=== PATIENT | male | born 1990 | race Caucasian/White ===

== ENCOUNTER 2016-09-23 12:20 | Emergency (ER) | payer BC, OTHER ==
[2016-09-23 13:19] VITALS: BP 142/65
--- NOTE | 2016-09-23 14:29 | UC ---
Headache HPI - HPI Summary HPI Summary: 26 y/o male presents to the urgent care c/o headache since 09/19/2016. Pt states his symptoms started while working a lot w/ the computer. He developed mild sore throat and nasal congestion for 1 day. He has been taking Ibuprofen on and off which has improve the symptoms. However today he developed and episode of vomiting and his FLOR is 6/10 w/o photophobia. Pt states his FLOR started in both temples and then radiated to back of his head. Pt denies fever, dizziness, SOB , chest pain, diarrhea, abdominal pain, neck pain. Pt has not other complains. - History Of Current Complaint Chief Complaint: UCHeadache Stated Complaint: HEAD PAIN Time Seen by Provider: 09/23/16 14:26 Hx Obtained From: Patient Onset/Duration: Gradual Onset, Lasting Days, Still Present Initially Headache Was: Initial Pain Scale(0-10)= - 8/10 Currently Pain Is: Current Pain Scale(0-10)= - 6/10 Pain Intensity: 6 Pain Scale Used: 0-10 Numeric Timing: Constant Character: Typical Headache Location of Headache: Temporal, Occipital Aggravating Factor: Other - ibuprofen Associated Signs And Symptoms: Positive: Nausea, Vomiting. Negative: Dizziness , Fever, Neck Pain, Neck Stiffness, Decreased LOC, Visual Changes - Risk Factors SAH Risk Factors: Negative Meningitis Risk Factors: Negative SDH Risk Factors: Negative Temporal Arteritis Risk Factors: Negative - Allergies/Home Medications Allergies/Adverse Reactions: Allergies Allergy/AdvReac Type Severity Reaction Status Date / Time No Known Allergies Allergy Verified 09/23/16 13:19 PMH/Surg Hx/FS Hx/Imm Hx Other Cardiovascular History: white coat HTN Respiratory History: Asthma Other Neurological History: Meningitis 10 years ago Other History Of: Negative For: HIV, Hepatitis B, Hepatitis C, Anticoagulant Therapy - Surgical History Surgical History: None - Family History Known Family History: Positive: Cardiac Disease, Hypertension, Diabetes - Social History Occupation: Employed Full-time Lives: With Family Alcohol Use: Occasionally Substance Use Type: None Smoking Status (MU): Never Smoked Tobacco Have You Smoked in the Last Year: No Review of Systems Constitutional: Negative Skin: Negative Eyes: Negative ENT: Negative Respiratory: Negative Cardiovascular: Negative Gastrointestinal: Vomiting, Nausea Genitourinary: Negative Motor: Negative Neurovascular: Negative Musculoskeletal: Negative Neurological: Headache Psychological: Negative All Other Systems Reviewed And Are Negative: Yes Physical Exam Triage Information Reviewed: Yes Appearance: Well-Appearing, No Pain Distress, Well-Nourished Vital Signs: Initial Vital Signs Temp 97.6 F 09/23/16 13:14 Pulse 69 09/23/16 13:14 Resp 18 09/23/16 13:14 BP 142/65 09/23/16 13:14 Pulse Ox 100 09/23/16 13:14 Vital Signs Reviewed: Yes Eye Exam: Normal Eyes: Positive: Conjunctiva Clear - PERRLS, EOMI, fundi grossly normal ENT Exam: Normal ENT: Positive: Normal ENT inspection, Hearing grossly normal, Pharynx normal, TMs normal Dental Exam: Normal Neck exam: Normal Neck: Positive: Supple, Nontender, No Lymphadenopathy Respiratory Exam: Normal Respiratory: Positive: Chest non-tender, Lungs clear, Normal breath sounds Cardiovascular Exam: Normal Cardiovascular: Positive: RRR, No Murmur, Pulses Normal Abdominal Exam: Normal Abdomen Description: Positive: Nontender, No Organomegaly, Soft. Negative: CVA Tenderness (R), CVA Tenderness (L) Bowel Sounds: Positive: Present Musculoskeletal Exam: Normal Musculoskeletal: Positive: Strength Intact, ROM Intact, No Edema Neurological Exam: Normal Psychological Exam: Normal Skin Exam: Normal Headache Course/Dx - Course Course Of Treatment: . 26 y/o male presents to the urgent care c/o headache since 09/19/2016. Pt states his symptoms started while working a lot w/ the computer. He developed mild sore throat and nasal congestion for 1 day. He has been taking Ibuprofen on and off which has improve the symptoms. However today he developed and episode of vomiting and his FLOR is 6/10 w/o photophobia. Pt states his FLOR started in both temples and then radiated to back of his head. Pt denies fever, dizziness, SOB, chest pain, diarrhea, abdominal pain, neck pain. Hx obtained. PE WNL, pt symptomatic w/ N/V and FLOR. PT given Toradol IM inj and Zofran PO to alleviate symptoms. Pt tolerated well medications and felt better. Pt D/C home with Rx Naproxen PO ans Zofran PO to alleviate symptoms. Advised to go to Opthalmologist for change in eye glases since he straining his eyes at work. Pt understood and agreed. Pt BP elevated. Pt with HX of [place]at HTN. - Differential Dx/Diagnosis Differential Diagnosis/HQI/PQRI: Migraine, Sinus Headache, Tension Headache, Viral Syndrome Provider Diagnoses: 1- Acute Headache. 2-Nausea and vomiting Discharge - Discharge Plan Condition: Stable Disposition: HOME Prescriptions: Naproxen TAB* [Naprosyn 250 mg TAB*] 500 mg PO Q8H PRN #21 tab PRN Reason: Headache Ondansetron TAB* [Zofran 4 MG Tab*] 4 mg PO Q6H PRN #12 tab PRN Reason: Vomiting Patient Education Materials: Acute Headache (ED) Referrals: Kendall Ramirez MD [Primary Care Provider] - If Needed Additional Instructions: Please take Naproxen PO as instructed after meals to alleviate Headache and Zofran PO to alleviate nausea and vomiting. If symptoms do not improve or worsen please return to the urgent care or f/u with your PCP for further evaluation and treatment. Please f/u with your cardiac nurse for further evaluation on your eye glasses.
[2016-09-23] MEDS ORDERED: Ketorolac INJ* 60 MG/2 ML VIAL IM ONE (14:39)
[2016-09-23] MEDS ORDERED: Ondansetron TAB* 4 MG PO ONE (14:41)
[2016-09-23] MEDS ORDERED: Ondansetron ODT TAB* 4 MG ONE (14:49)
[2016-09-23] MEDS ORDERED: Ondansetron ODT TAB* 4 MG PO ONE (14:57)
== END 2016-09-23 15:00 | disposition home or self-care (01) ==
LOC: UCEAST 12:20
DX: R51 Headache (principal); R11.2 Nausea with vomiting, unspecified; J45.909 Unspecified asthma, uncomplicated; R03.0 Elevated blood-pressure reading, without diagnosis of hypertension
CPT/HCPCS: 96372; 99212; A9270-GY; G0463; J1885

== ENCOUNTER 2016-10-22 09:52 | Emergency (ER) | payer BC ==
[2016-10-22 12:09] VITALS: BP 132/70
--- NOTE | 2016-10-22 12:11 | UC ---
Viv Nichols Thomas, [facility] on 10/22/16 at 1132 . Abdominal Pain Male HPI - HPI Summary HPI Summary: The pt is a 26 y/o M presenting to E c/o N/V/D that began 4 days ago. He describes his stool as dark in color. The pt rates the pain 4/10 and describes his pain as cramping. He also notes a gassy, bubbling feeling with occasional sharp pains. He ate cereal today, which he was unable to keep down. He notes chronic stomach complaints for the last year, and it is not unusual for him to have concurrent diarrhea and vomiting. His prior gastrointestinal complaints were evaluated by Dr. Ramirez previously. He does not have a previous diagnosis of irritable bowel syndrome although this was discussed as a possible diagnosis if his gastrointestinal complaints were to continue. His symptoms are sometimes aggravated by drinking water. The symptoms are alleviated by nothing. Pt additionally c/o recent weight loss (8-10 pounds in the last month) and fatigue. Pt denies jon blood in his vomit or stool, fever, dysuria, hematuria. He reports that he ate suspect Setswana food the day before his symptoms began. PMHx: meningitis, shingles. PSHx: none. SHx: no smoking, occasional and moderate alcohol use, no illicit drug use. FHx: negative for GI disease. Note: VS Stable. BP 138/98. Pulse Ox 100. 4/10 discomfort. Occasional alcohol, nonsmoker. Hx Meningitis and shingles. Visit history includes diarrhea. Patient is on no medications. Nurses Note: has had stomach issues for over a year. starting 4 days ago he has had N/V/D. he says he feels "super phlegmy". in the past he has taken a nausea pill as needed which has helped. he is here to get checked out. he denies jon blood in the vomit or stool. he does say that the stool is dark in color. he has seen Dr Ramirez and recommended to monitor his diet. he has not seen GI specialist. he did try to contact Dr Ramirez today but could not get an appt. He states he has lost 8-10 lbs in the past month. - History of Current Complaint Chief Complaint: UCAbdominalPain Stated Complaint: ABDOMINAL COMPLAINT Time Seen by Provider: 10/22/16 11:22 Onset/Duration: Lasting Days - 4, Still Present Timing: Constant Pain Intensity: 4 Pain Scale Used: 0-10 Numeric Character: Aching, Other - Gassy, bubbling, occasionally sharp Aggravating Factor(s):: Food - sometiems drinking water Alleviating Factor(s): Nothing Associated Signs And Symptoms: Positive: Nausea, Vomiting, Diarrhea. Negative: Fever, Back Pain, Constipation, Urinary Symptoms - Allergies/Home Medications Allergies/Adverse Reactions: Allergies Allergy/AdvReac Type Severity Reaction Status Date / Time No Known Allergies Allergy Verified 10/22/16 10:36 Home Medications: Home Medications Multivitamins/Minerals TAB* [Thera M Plus TAB*] 1 tab PO DAILY 10/22/16 [ History Confirmed 10/22/16] PMH/Surg Hx/FS Hx/Imm Hx Previously Healthy: No - Meningitis, Shingles Respiratory History: Other Other Respiratory History: NEG: COPD Other History Of: Negative For: HIV, Hepatitis B, Hepatitis C, Anticoagulant Therapy - Surgical History Surgical History: None - Family History Known Family History: Positive: Cardiac Disease, Hypertension, Diabetes, Other - NEG: GI disease - Social History Alcohol Use: Occasionally Substance Use Type: None Smoking Status (MU): Never Smoked Tobacco Have You Smoked in the Last Year: No Review of Systems Constitutional: Other - POS: recent weight loss (8-10 pounds in last month). Skin: Negative Eyes: Negative ENT: Negative Respiratory: Negative Cardiovascular: Negative Gastrointestinal: Vomiting, Diarrhea, Nausea, Other - NEG: jon blood in vomit or stool Genitourinary: Negative Motor: Negative Neurovascular: Negative Musculoskeletal: Negative Neurological: Other - POS: fatigue Psychological: Negative All Other Systems Reviewed And Are Negative: Yes Physical Exam Triage Information Reviewed: Yes Vital Signs: Initial Vital Signs Temp 98.9 F 10/22/16 10:31 Pulse 73 10/22/16 10:31 Resp 16 10/22/16 10:31 BP 138/93 10/22/16 10:31 Pulse Ox 100 10/22/16 10:31 Vital Signs Reviewed: Yes - Additional Comments Appearance: The patient is well-appearing, is in no pain distress, and is well- nourished. Eyes: Conjunctiva are clear. ENT: The hearing is grossly normal, the pharynx is normal, and the TMs are normal. There is no muffled or hoarse voice. Neck: The neck is supple and nontender. Respiratory: The chest is nontender. The lungs are clear, there are normal breath sounds, and there is no respiratory distress. Cardiovascular: Heart is regular rate and rhythm. There is no murmur. Abdomen: NO PERITONEAL SIGNS. The abdomen is soft and nontender. There is no organomegaly. Bowel sounds: HYPERACTIVE BOWEL SOUNDS, TYMPANITIC. Musculoskeletal: Strength is intact. The patient moves all extremities. Neurological: The patient is alert. Psychological: The patient displays age appropriate behavior Skin: Negative for rashes. Abd Pain Male Course/Dx - Course Course Of Treatment: The patient presents with N/V/D that began 5 days ago. He also notes chronic gastrointestinal complaints for the last year. Medications have been included in the original chart and reviewed. Pre-Hypertensive BP reading. The patient is diagnosed with abdominal discomfort with N/V/D: unclear etiology, gastroenteritis vs. irritable bowel syndrome. - Differential Dx/Clinical Impression Differential Diagnosis/HQI/PQRI: Other - Gastroenteritis, irritable bowel syndrome Provider Diagnoses: Abdominal discomfort with N/V/D: unclear etiology, gastroenteritis vs. irritable bowel syndrome. Discharge - Discharge Plan Condition: Stable Disposition: HOME Patient Education Materials: Irritable Bowel Syndrome (ED), Nutrition Tips for Relief of Diarrhea (ED) Forms: *Work Release Referrals: Kendall Ramirez MD [Primary Care Provider] - Additional Instructions: Thank you for helping us improve patient care by filling out the My Point Survey. Your blood pressure reading today was 138/93, indicating PREHYPERTENSION. Follow -up with your primary care provider within 4 weeks for blood pressure readings and further evaluation. WE DISCUSSED: You may have a bowel virus infection or irritable bowel syndrome. See diet recommendations I have given you. Re check for increased pain, temperature, blood in stool. See your doctor for follow up and further evaluation and treatment as needed. The documentation as recorded by the Viv cervantes Thomas accurately reflects the service I personally performed and the decisions made by me, Grover Pinon MD.
== END 2016-10-22 12:10 | disposition home or self-care (01) ==
LOC: UCEAST 09:52
DX: R10.9 Unspecified abdominal pain (principal); R11.2 Nausea with vomiting, unspecified; R19.7 Diarrhea, unspecified; R63.4 Abnormal weight loss
CPT/HCPCS: 99212; G0463

== ENCOUNTER 2016-11-11 14:43 | Emergency (ER) | payer BC ==
[2016-11-11 14:51] VITALS: BP 140/83
--- NOTE | 2016-11-11 16:03 | UC ---
Dizzy HPI HPI Summary: 26 yo male awoke today with fatigue/mild runny nose/mild aches/and burning eyes worse symptom is fatigue and dizziness - History Of Current Complaint Chief Complaint: UCGeneralIllness Stated Complaint: LIGHT-HEADED,ACHES,FATIGUE Time Seen by Provider: 11/11/16 15:48 Hx Obtained From: Patient Onset/Duration: Gradual Onset, Lasting Hours Timing: Constant Severity Initially: Mild Severity Currently: Mild Pain Intensity: 2 Pain Scale Used: 0-10 Numeric Character: Weak, Dizzy Aggravating Factor(s): Nothing Alleviating Factor(s): Nothing Associated Signs And Symptoms: Negative: Nausea, Vomiting, Diaphoresis, Tinnitus , Chest Pain, SOB, Palpitations, Unsteady Gait, Visual Changes, Decreased Oral Intake, Change In Medication, Change In Diet, OTC Medications - Risk Factors Cardiac Risk Factors: Negative CVA Risk Factor: Negative - Allergies/Home Medications Allergies/Adverse Reactions: Allergies Allergy/AdvReac Type Severity Reaction Status Date / Time No Known Allergies Allergy Verified 11/11/16 14:51 PMH/Surg Hx/FS Hx/Imm Hx Previously Healthy: Yes - asceptic meningitis age 15, mono, shingles Other History Of: Negative For: HIV, Hepatitis B, Hepatitis C, Anticoagulant Therapy - Surgical History Surgical History: None - Family History Known Family History: Positive: Cardiac Disease, Hypertension, Diabetes, Other - NEG: GI disease - Social History Alcohol Use: Occasionally Substance Use Type: None Smoking Status (MU): Never Smoked Tobacco Have You Smoked in the Last Year: No Review of Systems Constitutional: Fatigue Skin: Negative Eyes: Other - burning eyes with "hot tears" ENT: Nasal Discharge Respiratory: Negative Cardiovascular: Negative Gastrointestinal: Negative Genitourinary: Negative Motor: Negative Neurovascular: Negative Musculoskeletal: Myalgia Neurological: Negative Psychological: Negative Is Patient Immunocompromised?: No All Other Systems Reviewed And Are Negative: Yes Physical Exam Triage Information Reviewed: Yes Appearance: Well-Appearing, No Pain Distress, Well-Nourished Vital Signs: Initial Vital Signs Temp 98.8 F 11/11/16 14:47 Pulse 74 11/11/16 14:47 Resp 18 11/11/16 14:47 BP 140/83 11/11/16 14:47 Pulse Ox 99 11/11/16 14:47 Eye Exam: Normal Eyes: Positive: Conjunctiva Clear. Negative: Conjunctiva Inflamed, Discharge ENT: Positive: Hearing grossly normal, Pharynx normal, Nasal drainage, TMs normal. Negative: Nasal congestion, Tonsillar swelling, Tonsillar exudate, Trismus, Muffled/hoarse voice Neck: Positive: Supple, Nontender, No Lymphadenopathy Respiratory: Positive: Lungs clear, Normal breath sounds, No respiratory distress, No accessory muscle use Cardiovascular: Positive: RRR, No Murmur, Pulses Normal Musculoskeletal: Positive: ROM Intact, No Edema Neurological: Positive: Alert Psychological Exam: Normal Skin Exam: Normal Dizzy Course/Dx - Differential Dx/Diagnosis Provider Diagnoses: viral syndrome. ? allergic conjunctivits Discharge - Discharge Plan Condition: Stable Disposition: HOME Patient Education Materials: Viral Syndrome (ED) Forms: *Work Release Referrals: Kendall Ramirez MD [Primary Care Provider] - 4 Days (if not better) Additional Instructions: rest fluids ZADITOR EYE DROPS (OTC) YOU MAY HAVE ALLERGIC CONJUNCTIVITIS bp a little on the high side today and should be rechecked when you next see your provider
== END 2016-11-11 16:00 | disposition home or self-care (01) ==
LOC: UCEAST 14:43
DX: B34.9 Viral infection, unspecified (principal)
CPT/HCPCS: 99211; G0463

== ENCOUNTER 2016-11-13 12:47 | Emergency (ER) | payer BC ==
[2016-11-13 15:10] LABS: Hematocrit 50 % (42-52); Hemoglobin 16.9 g/dl (14.0-18.0); Mean Corpuscular HGB Conc 34 g/dl (31-36); Mean Corpuscular Hemoglobin 29 pg (27-31); Mean Corpuscular Volume 85 fL (80-94); Mean Platelet Volume 9 um3 (7.4-10.4); Red Blood Count 5.85 10^6/ul (4.0-5.4); Red Cell Distribution Width 13 % (10.5-15); White Blood Count 9.8 10^3/ul (3.5-10.8)
[2016-11-13 16:14] LABS: BUN/Creatinine Ratio 12.7 (8-20); C Reactive Protein 2.03 mg/L (< 5.00); Calcium 9.8 mg/dL (8.6-10.3); EGFR African American 105.8 (>60); EGFR Non-African American 82.2 (>60); Globulin 2.7 g/dL (2-4); Potassium 3.8 mmol/L (3.5-5.0); Total Protein 7.7 g/dL (6.4-8.9)
[2016-11-13 16:38] LABS: Urine Bilirubin Negative (Negative); Urine Glucose Negative (Negative); Urine Nitrite Negative (Negative)
[2016-11-13 17:12] VITALS: BP 135/71
--- NOTE | 2016-11-15 11:49 | ED ---
Jaime Nichols Benjamin, scribed for David Hay MD on 11/13/16 at 1506 . Abdominal Pain/Male - HPI Summary HPI Summary: 26yo male c/o diffuse abdominal pain for 2 days. Pt has been having ongoing GI problem for a year now and is being worked up with a GI doctor for possible IBS. Pt has been having abdominal pain on and off for a year now. Pt reports that in the past 2 days, his abdominal pain has gotten worse, and reports fatigue, lightheadedness, dizziness, body aches, shaking, and diarrhea. Pt has a appointment with his GI doctor next Friday. - History of Current Complaint Chief Complaint: EDGeneral Stated Complaint: ABD PAIN, LIGHT HEADED Time Seen by Provider: 11/13/16 14:43 Hx Obtained From: Patient, Family/Rides Supervisor Onset/Duration: Gradual Onset, Lasting Days - 2 days, Still Present Timing: Constant Severity Initially: Mild Severity Currently: Mild Pain Intensity: 0 Pain Scale Used: 0-10 Numeric Location: Diffuse Radiates: No Aggravating Factor(s): Nothing Alleviating Factor(s): Nothing Associated Signs And Symptoms: Positive: Dizzy, Nausea, Diarrhea - Allergies/Home Medications Allergies/Adverse Reactions: Allergies Allergy/AdvReac Type Severity Reaction Status Date / Time No Known Allergies Allergy Verified 11/13/16 14:55 PMH/Surg Hx/FS Hx/Imm Hx Endocrine/Hematology History: Denies: Hx Anticoagulant Therapy, Hx Diabetes, Hx Thyroid Disease Cardiovascular History: Denies: Hx Congestive Heart Failure, Hx Deep Vein Thrombosis, Hx Hypertension , Hx Myocardial Infarction, Hx Pacemaker/ICD Respiratory History: Reports: Hx Asthma - Childhood Denies: Hx Chronic Obstructive Pulmonary Disease (COPD), Hx Lung Cancer, Hx Pneumonia, Hx Pulmonary Embolism GI History: Denies: Hx Gall Bladder Disease, Hx Gastrointestinal Bleed, Hx Ulcer, Hx Urosepsis History: Denies: Hx Kidney Stones, Hx Renal Disease Neurological History: Denies: Hx Dementia, Hx Migraine, Hx Seizures, Hx Transient Ischemic Attacks (TIA) Psychiatric History: Denies: Hx Anxiety, Hx Depression, Hx Schizophrenia, Hx Bipolar Disorder Infectious Disease History: No Infectious Disease History: Denies: Hx Clostridium Difficile, Hx Hepatitis, Hx Human Immunodeficiency Virus (HIV), Hx of Known/Suspected MRSA, Hx Shingles, Hx Tuberculosis, Hx Known/ Suspected VRE, Hx Known/Suspected VRSA, History Other Infectious Disease, Traveled Outside the [place] in Last 30 Days - Family History Known Family History: Positive: Cardiac Disease, Hypertension, Diabetes, Other - NEG: GI disease - Social History Lives: With Family Alcohol Use: Occasionally Substance Use Type: Reports: None Smoking Status (MU): Never Smoked Tobacco Have You Smoked in the Last Year: No Review of Systems Positive: Fatigue Eyes: Negative ENT: Negative Cardiovascular: Negative Respiratory: Negative Positive: Abdominal Pain, Diarrhea Genitourinary: Negative Positive: Myalgia Skin: Negative Neurological: Other - dizziness, lightheadedness Psychological: Normal All Other Systems Reviewed And Are Negative: Yes Physical Exam Triage Information Reviewed: Yes Vital Signs On Initial Exam: Initial Vitals Temp Pulse Resp BP Pulse Ox 98.1 F 69 17 146/84 99 11/13/16 12:50 11/13/16 12:50 11/13/16 12:50 11/13/16 12:50 11/13/16 12:50 Vital Signs Reviewed: Yes Appearance: Positive: Well-Appearing, No Pain Distress, Well-Nourished Skin: Positive: Warm, Skin Color Reflects Adequate Perfusion, Dry Head/Face: Positive: Normal Head/Face Inspection Eyes: Positive: EOMI, BETHANY ENT: Positive: Normal ENT inspection, Hearing grossly normal Neck: Positive: Supple, Nontender Respiratory/Lung Sounds: Positive: Clear to Auscultation, Breath Sounds Present Cardiovascular: Positive: RRR, Pulses are Symmetrical in both Upper and Lower Extremities Abdomen Description: Positive: Soft. Negative: Nontender - epigastric and RUQ tenderness Bowel Sounds: Positive: Present Musculoskeletal: Positive: Strength/ROM Intact Neurological: Positive: Sensory/Motor Intact, Alert, Oriented to Person Place, Time Psychiatric: Positive: Affect/Mood Appropriate - [place] Coma Scale Coma Scale Total: 15 Diagnostics - Vital Signs Vital Signs Temp Pulse Resp BP Pulse Ox 11/13/16 14:41 61 100 11/13/16 14:40 140/72 11/13/16 12:50 98.1 F 69 17 146/84 99 - Laboratory Lab Results: Lab Results 11/13/16 11/13/16 11/13/16 Range/Units 15:02 15:02 15:02 WBC 9.8 (3.5-10.8) 10^3/ul RBC 5.85 H (4.0-5.4) 10^6/ul Hgb 16.9 (14.0-18.0) g/dl Hct 50 (42-52) % MCV 85 (80-94) fL MCH 29 (27-31) pg MCHC 34 (31-36) g/dl RDW 13 (10.5-15) % Plt Count 203 (150-450) 10^3/ul MPV 9 (7.4-10.4) um3 Neut % (Auto) 77.0 (38-83) % Lymph % (Auto) 14.4 L (25-47) % [place] % (Auto) 5.8 (1-9) % Eos % (Auto) 2.4 (0-6) % Baso % (Auto) 0.4 (0-2) % Absolute Neuts (auto) 7.6 (1.5-7.7) 10^3/ul Absolute Lymphs (auto) 1.4 (1.0-4.8) 10^3/ul Absolute Monos (auto) 0.6 (0-0.8) 10^3/ul Absolute Eos (auto) 0.2 (0-0.6) 10^3/ul Absolute Basos (auto) 0 (0-0.2) 10^3/ul Absolute Nucleated RBC 0.01 10^3/ul Nucleated RBC % 0.1 Sodium 136 (133-145) mmol/L Potassium 3.8 (3.5-5.0) mmol/L Chloride 101 (101-111) mmol/L Carbon Dioxide 26 (22-32) mmol/L Anion Gap 9 (2-11) mmol/L BUN 14 (6-24) mg/dL Creatinine 1.10 (0.67-1.17) mg/dL Est GFR ( Amer) 105.8 (>60) Est GFR (Non-Af Amer) 82.2 (>60) BUN/Creatinine Ratio 12.7 (8-20) Glucose 86 (70-100) mg/dL Lactic Acid 1.1 (0.5-2.0) mmol/L Calcium 9.8 (8.6-10.3) mg/dL Total Bilirubin 1.00 (0.2-1.0) mg/dL AST 15 (13-39) U/L ALT 16 (7-52) U/L Alkaline Phosphatase 67 (34-104) U/L C-Reactive Protein 2.03 (< 5.00) mg/L Total Protein 7.7 (6.4-8.9) g/dL Albumin 5.0 (3.2-5.2) g/dL Globulin 2.7 (2-4) g/dL Albumin/Globulin Ratio 1.9 (1-3) Lipase 27 (11.0-82.0) U/L Urine Color Urine Appearance Urine pH (5-9) Ur Specific [place] (1.010-1.030) Urine Protein (Negative) Urine Ketones (Negative) Urine Blood (Negative) Urine Nitrate (Negative) Urine Bilirubin (Negative) Urine Urobilinogen (Negative) Ur Leukocyte Esterase (Negative) Urine Glucose (Negative) 11/13/16 Range/Units 16:13 WBC (3.5-10.8) 10^3/ul RBC (4.0-5.4) 10^6/ul Hgb (14.0-18.0) g/dl Hct (42-52) % MCV (80-94) fL MCH (27-31) pg MCHC (31-36) g/dl RDW (10.5-15) % Plt Count (150-450) 10^3/ul MPV (7.4-10.4) um3 Neut % (Auto) (38-83) % Lymph % (Auto) (25-47) % [place] % (Auto) (1-9) % Eos % (Auto) (0-6) % Baso % (Auto) (0-2) % Absolute Neuts (auto) (1.5-7.7) 10^3/ul Absolute Lymphs (auto) (1.0-4.8) 10^3/ul Absolute Monos (auto) (0-0.8) 10^3/ul Absolute Eos (auto) (0-0.6) 10^3/ul Absolute Basos (auto) (0-0.2) 10^3/ul Absolute Nucleated RBC 10^3/ul Nucleated RBC % Sodium (133-145) mmol/L Potassium (3.5-5.0) mmol/L Chloride (101-111) mmol/L Carbon Dioxide (22-32) mmol/L Anion Gap (2-11) mmol/L BUN (6-24) mg/dL Creatinine (0.67-1.17) mg/dL Est GFR ( Amer) (>60) Est GFR (Non-Af Amer) (>60) BUN/Creatinine Ratio (8-20) Glucose (70-100) mg/dL Lactic Acid (0.5-2.0) mmol/L Calcium (8.6-10.3) mg/dL Total Bilirubin (0.2-1.0) mg/dL AST (13-39) U/L ALT (7-52) U/L Alkaline Phosphatase (34-104) U/L C-Reactive Protein (< 5.00) mg/L Total Protein (6.4-8.9) g/dL Albumin (3.2-5.2) g/dL Globulin (2-4) g/dL Albumin/Globulin Ratio (1-3) Lipase (11.0-82.0) U/L Urine Color Yellow Urine Appearance Clear Urine pH 6.0 (5-9) Ur Specific [place] 1.012 (1.010-1.030) Urine Protein Negative (Negative) Urine Ketones Negative (Negative) Urine Blood Negative (Negative) Urine Nitrate Negative (Negative) Urine Bilirubin Negative (Negative) Urine Urobilinogen Negative (Negative) Ur Leukocyte Esterase Negative (Negative) Urine Glucose Negative (Negative) Result Diagrams: 11/13/16 15:02 11/13/16 15:02 Lab Statement: Any lab studies that have been ordered have been reviewed, and results considered in the medical decision making process. Abdominal Pain Fem Course/Dx - Course Course Of Treatment: Mr. Corbin presented with an acute exacerbation of chronic abdominal pain that he has been getting a W/U for and has a GI appointment scheduled next week. He also had some vague systemic symptoms although his W/U was negative. He is encouraged to FU. - Diagnoses Provider Diagnoses: Abdominal pain Discharge - Discharge Plan Condition: Stable Disposition: HOME Patient Education Materials: Abdominal Pain (ED) Referrals: Kendall Ramirez MD [Primary Care Provider] - Additional Instructions: KEEP YOUR APPOINTMENT WITH YOUR GI DOCTOR. The documentation as recorded by the Jaime cervantes Benjamin accurately reflects the service I personally performed and the decisions made by me, David Hay MD.
== END 2016-11-13 17:15 | disposition home or self-care (01) ==
LOC: ED 12:47
DX: R10.9 Unspecified abdominal pain (principal); R42 Dizziness and giddiness; R11.0 Nausea; R19.7 Diarrhea, unspecified
CPT/HCPCS: 36415; 80053; 81003; 83605; 83690; 85025; 86140; 99282

== ENCOUNTER 2016-12-18 12:13 | Emergency (ER) | payer BC ==
[2016-12-18 12:24] VITALS: BP 131/49
[2016-12-18] MEDS ORDERED: Ondansetron ODT TAB* 4 MG PO ONE (12:39)
[2016-12-18] MEDS ORDERED: Ondansetron ODT TAB* 4 MG ONE (12:43)
--- NOTE | 2016-12-18 12:47 | UC ---
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 Negative: LOC (Time In Secs./Mins/Hrs), LOC Duration Unknown, Confusion, Memory Loss, Seizure, Epistaxis, Dental Malocclusion, Vomiting - Allergies/Home Medications Allergies/Adverse Reactions: Allergies Allergy/AdvReac Type Severity Reaction Status Date / Time No Known Allergies Allergy Verified 12/18/16 12:25 PMH/Surg Hx/FS Hx/Imm Hx Previously Healthy: Yes Other History Of: Negative For: HIV, Hepatitis B, Hepatitis C, Anticoagulant Therapy - Surgical History Surgical History: None - Family History Known Family History: Positive: Cardiac Disease, Hypertension, Diabetes, Other - NEG: GI disease - Social History Alcohol Use: Occasionally Substance Use Type: None Smoking Status (MU): Never Smoked Tobacco Have You Smoked in the Last Year: No Review of Systems Constitutional: Negative Skin: Negative Eyes: Photophobia ENT: Negative Respiratory: Negative Cardiovascular: Negative Gastrointestinal: Nausea Genitourinary: Negative Motor: Negative Neurovascular: Negative Musculoskeletal: Negative Neurological: Headache Psychological: Negative Is Patient Immunocompromised?: No All Other Systems Reviewed And Are Negative: Yes Physical Exam Triage Information Reviewed: Yes Appearance: Well-Appearing, No Pain Distress, Well-Nourished Vital Signs: Initial Vital Signs Temp 98.7 F 12/18/16 12:20 Pulse 79 12/18/16 12:20 Resp 15 12/18/16 12:20 BP 131/49 12/18/16 12:20 Pulse Ox 100 12/18/16 12:20 Vital Signs Reviewed: Yes Eyes: Positive: Conjunctiva Clear, Other: - perrl/eomi ENT: Positive: Hearing grossly normal, TMs normal, Uvula midline. Negative: Nasal congestion, Nasal drainage, TM bulging, Sinus tenderness Neck: Positive: Supple, No Lymphadenopathy, Tenderness @ - r/l lateral neck Respiratory: Positive: Lungs clear, Normal breath sounds, No respiratory distress Cardiovascular: Positive: RRR, No Murmur Musculoskeletal: Positive: ROM Intact, No Edema Neurological: Positive: Alert, Muscle Tone Normal, Other: - GCS15/15, (-) rhomberg, normal gait Psychological Exam: Normal Skin Exam: Normal Head Injury Course/Dx - Differential Dx/Diagnosis Provider Diagnoses: concussion without LOC Discharge - Discharge Plan Condition: Stable Disposition: HOME Prescriptions: Ondansetron TAB* [Zofran Tab*] 4 mg PO Q6H PRN #10 tab PRN Reason: Nausea Patient Education Materials: Concussion (ED) Forms: *Work Release Referrals: Kendall Ramirez MD [Primary Care Provider] - 5 Days Additional Instructions: rest ice tylenol or advil recheck in 4-5 days recheck sooner for new or worsening symptoms
== END 2016-12-18 12:50 | disposition home or self-care (01) ==
LOC: UCEAST 12:13
DX: S06.0X0A Concussion without loss of consciousness, initial encounter (principal); W22.8XXA Striking against or struck by other objects, initial encounter; Y92.9 Unspecified place or not applicable
CPT/HCPCS: 99212; A9270-GY; G0463

== ENCOUNTER 2017-02-01 09:41 | Emergency (ER) | payer BC ==
[2017-02-01 10:03] VITALS: BP 144/67
--- NOTE | 2017-02-01 10:06 | UC ---
Hand/Wrist HPI - HPI Summary HPI Summary: Pt presents with right thumb injury 1 week ago. He tells me that he was working working with wood and approx 1cm splinter penetrated his right thumb between the skin fold and radial nail. He was able to remove the splinter immediately and without difficulty. He is here today because the area has become red, tender , and mildly draining white/yellow. He denies fever, chills, numbness, tingling , stiff neck or jaw, headache, SOB, or chest pain. - History Of Current Complaint Chief Complaint: UCSkin Stated Complaint: RIGHT THUMB COMPLAINT Time Seen by Provider: 02/01/17 10:00 Hx Obtained From: Patient Severity Currently: Moderate Pain Intensity: 7 Pain Scale Used: 0-10 Numeric Character Of Pain: Dull, Aching, Throbbing - Allergies/Home Medications Allergies/Adverse Reactions: Allergies Allergy/AdvReac Type Severity Reaction Status Date / Time No Known Allergies Allergy Verified 02/01/17 10:02 Home Medications: Home Medications Loperamide CAP* [Imodium CAP*] 2 mg PO SEE INSTRUCTIONS 02/01/17 [History Confirmed 02/01/17] Ranitidine HCl [Ranitidine Maximum Streng] 150 mg PO DAILY 02/01/17 [History Confirmed 02/01/17] PMH/Surg Hx/FS Hx/Imm Hx Previously Healthy: Yes Other History Of: Negative For: HIV, Hepatitis B, Hepatitis C, Anticoagulant Therapy - Surgical History Surgical History: None - Family History Known Family History: Positive: Cardiac Disease, Hypertension, Diabetes, Other - NEG: GI disease - Social History Occupation: Employed Full-time Lives: With Family Alcohol Use: Occasionally Substance Use Type: None Smoking Status (MU): Never Smoked Tobacco Have You Smoked in the Last Year: No - Immunization History Most Recent Influenza Vaccination: none Review of Systems Constitutional: Negative Skin: Other - Redness right thumb ENT: Negative Respiratory: Negative Cardiovascular: Negative Musculoskeletal: Other: - Right thumb pain Neurological: Negative Psychological: Negative All Other Systems Reviewed And Are Negative: Yes Physical Exam Triage Information Reviewed: Yes Appearance: Well-Appearing, No Pain Distress, Well-Nourished Vital Signs: Initial Vital Signs Temp 97.5 F 02/01/17 10:00 Pulse 69 02/01/17 10:00 Resp 14 02/01/17 10:00 BP 144/67 02/01/17 10:00 Pulse Ox 100 02/01/17 10:00 Vital Signs Reviewed: Yes Neck: Positive: Supple, Nontender, No Lymphadenopathy Musculoskeletal: Positive: Strength Intact - Right thumb, hand, and all digits, ROM Intact - Right thumb, hand, and all digits, No Edema, Other: Neurological: Positive: Alert, Other: - Sensations intact right thumb Psychological: Positive: Age Appropriate Behavior Skin: Positive: Other - Right thumb: Erythema along the skin fold and nail of the radial side. TTP in this area. Mild yellow crusting at the left lower base of the nail. No edema. No purulent matter able to be expressed. NTTP finger pad. No foreign body appreciate about the right thumb. Hand/Wrist Course/Dx - Course Course Of Treatment: Paronycha s/p puncture wound. Unsure when last tetanus - updated today. Rx for Keflex and advise to follow up if symptoms worsen or persist. - Differential Dx/Diagnosis Differential Diagnosis/HQI/PQRI: Cellulitis, Foreign Body, Fracture, Paronychia , Puncture Wound Provider Diagnoses: Paronychia right thumb. Puncture wound right thumb Discharge - Discharge Plan Condition: Stable Disposition: HOME Prescriptions: Cephalexin CAP* [Keflex CAP*] 250 mg PO QID #28 cap Patient Education Materials: Paronychia (ED) Referrals: Kendall Ramirez MD [Primary Care Provider] - Additional Instructions: If you develop a fever, SOB, chest pain, new or worsening symptoms - please call your PCP or go to the ED. Your blood pressure was high at todays visit. Please see your primary provider within 4 weeks for recheck and re-evaluation. 1) Monitor the area for any increased swelling, pain, redness, streaking, or discolored drainage. If you develop any of these symptoms, please go to the ED.
[2017-02-01] MEDS ORDERED: Tetan/Diph/Pertus SYR(Tdap)* 0.5 ML SYR(BOOSTRIX) use SYR IM ONE (10:11)
== END 2017-02-01 10:26 | disposition home or self-care (01) ==
LOC: UCEAST 09:41
DX: L03.011 Cellulitis of right finger (principal); S61.011A Laceration without foreign body of right thumb without damage to nail, initial encounter; W45.8XXA Other foreign body or object entering through skin, initial encounter; Y92.9 Unspecified place or not applicable
CPT/HCPCS: 90471; 90715; 99212; G0463

== ENCOUNTER 2017-06-12 13:46 | Emergency (ER) | payer BC ==
[2017-06-12 14:39] VITALS: BP 132/90
[2017-06-12] MEDS ORDERED: SCOP/HYOS/ATR/PB(NF) 10 ML UDC PO ONE (15:53)
--- NOTE | 2017-06-12 15:59 | UC ---
Abdominal Pain Male HPI - HPI Summary HPI Summary: 26 year old male with history of IBS here for abdominal painX3 hrs, now resolved. Sudden onset, left sided, lasted 2-3 hrs, described as sharp. Improved after burping. He took lactase pill that also helped with symptoms. Denies n/v/d/fever or chills. - History of Current Complaint Chief Complaint: UCGI Stated Complaint: STOMACH ACHE/DISCOMFORT Time Seen by Provider: 06/12/17 15:38 Onset/Duration: Sudden Onset Severity Initially: Moderate Severity Currently: Mild Pain Intensity: 3 Radiates: No Character: Other - pressure Aggravating Factor(s): Nothing Alleviating Factor(s): Other - burping Associated Signs And Symptoms: Positive: Negative - Allergies/Home Medications Allergies/Adverse Reactions: Allergies Allergy/AdvReac Type Severity Reaction Status Date / Time No Known Allergies Allergy Verified 06/12/17 14:39 PMH/Surg Hx/FS Hx/Imm Hx Previously Healthy: No Other History Of: Negative For: HIV, Hepatitis B, Hepatitis C, Anticoagulant Therapy - Surgical History Surgical History: None - Family History Known Family History: Positive: Cardiac Disease, Hypertension, Diabetes, Other - NEG: GI disease - Social History Alcohol Use: Occasionally Substance Use Type: None Smoking Status (MU): Never Smoked Tobacco Have You Smoked in the Last Year: No - Immunization History Most Recent Influenza Vaccination: none Review of Systems Constitutional: Negative Skin: Negative Eyes: Negative ENT: Negative Respiratory: Negative Cardiovascular: Negative Gastrointestinal: Abdominal Pain Genitourinary: Negative Motor: Negative Neurovascular: Negative Musculoskeletal: Negative Neurological: Negative Psychological: Negative All Other Systems Reviewed And Are Negative: Yes Physical Exam Triage Information Reviewed: Yes Appearance: Well-Appearing, No Pain Distress Vital Signs: Initial Vital Signs Temp 37.2 C 06/12/17 14:31 Pulse 66 06/12/17 14:31 Resp 18 06/12/17 14:31 BP 132/90 06/12/17 14:31 Pulse Ox 99 06/12/17 14:31 ENT Exam: Normal Dental Exam: Normal Respiratory Exam: Normal Cardiovascular Exam: Normal Abdomen Description: Positive: Other: - mild tenderness over left and right lower quadrant with no guarding and distractable Bowel Sounds: Positive: Present Male Genital Exam: Negative: Scrotum Tenderness (R), Scrotum Tenderness (L), Testicular Tenderness (R), Testicular Tenderness (L), Urethral Discharge Psychological Exam: Normal Abd Pain Male Course/Dx - Course Course Of Treatment: Patient reassured. However, I told patient appendicitis still on the differential and instructed patient to go to the ED if he develops worsening pain along with nausea, vomiting or fever. - Differential Dx/Clinical Impression Differential Diagnosis/HQI/PQRI: Testicular Torsion, Ureteral Stone, Other - IBS Provider Diagnoses: Abdominal pain most likely related to IBS Discharge - Sign-Out/Discharge Documenting (check all that apply): Discharge/Admit/Transfer - Discharge Plan Condition: Good Disposition: HOME Prescriptions: Phenobarb/Hyoscy/Atropine/Scop [ Tablet] 1 tab PO BID PRN #30 tablet PRN Reason: Pain - Abdominal Patient Education Materials: Antimuscarinic Combination (By mouth), Gas and Bloating (ED), Abdominal Pain (ED) Referrals: Kendall Ramirez MD [Primary Care Provider] - Additional Instructions: Do not combine donnatel with lopremide. Please go to the Emergency Department if you develop worsening pain along with nausea, vomiting or fever. - Billing Disposition and Condition Condition: GOOD Disposition: HOME
== END 2017-06-12 16:15 | disposition home or self-care (01) ==
LOC: UCCORT 13:46
DX: R10.9 Unspecified abdominal pain (principal); Z87.19 Personal history of other diseases of the digestive system
CPT/HCPCS: 99212; A9270-GY; G0463

== ENCOUNTER 2017-11-03 11:47 | Emergency (ER) | payer BC ==
[2017-11-03] MEDS ORDERED: Aspirin 81 mg CHEW TAB* 81 MG TAB.CHEW PO ONE (12:08)
--- NOTE | 2017-11-03 13:05 | RAD ---
HISTORY: chest pain COMPARISONS: None VIEWS: 3: frontal dual-energy view of the chest FINDINGS: CARDIOMEDIASTINAL SILHOUETTE: The cardiomediastinal silhouette is normal. JAIRON: The jairon are normal. PLEURA: The costophrenic angles are sharp. No pleural abnormalities are noted. LUNG PARENCHYMA: The lungs are clear. ABDOMEN: The upper abdomen is clear. There is no subphrenic gas. BONES AND SOFT TISSUES: No bone or soft tissue abnormalities are noted. OTHER: None. IMPRESSION: NO ACTIVE CARDIOPULMONARY DISEASE.
[2017-11-03 13:07] LABS: ABS Basophils 0 10^3/ul (0-0.2); ABS Eosinophils 0.1 10^3/ul (0-0.6); ABS Lymphocytes 1.2 10^3/ul (1.0-4.8); ABS Monocytes 0.4 10^3/ul (0-0.8); ABS Neutrophils 6.2 10^3/ul (1.5-7.7); ABS Nucleated RBC 0.1 10^3/ul; Eosinophil % 1.5 % (0-6); Hematocrit 47 % (42-52); Hemoglobin 16.5 g/dl (14.0-18.0); Lymphocyte % 15.4 % (25-47); Mean Corpuscular HGB Conc 35 g/dl (31-36); Mean Corpuscular Hemoglobin 29 pg (27-31); Mean Corpuscular Volume 83 fL (80-94); Mean Platelet Volume 8.8 um3 (7.4-10.4); Platelet Count 204 10^3/ul (150-450); Red Blood Count 5.64 10^6/ul (4.00-5.40); Red Cell Distribution Width 13 % (10.5-15)
[2017-11-03 13:27] LABS: EGFR Non-African American 86.1 (>60)
--- NOTE | 2017-11-03 15:24 | ED ---
HPI Chest Pain - HPI Summary HPI Summary: 27-year-old male presents with chest pain for the past couple hours. He states that it started as a feeling of lightheadedness which he gets once a month. He then develops some sternal pain which he just thought his chest needed to crack so he did that put it did not help. Then he developed some pinpoint pain to an area to his left side. He states it is a pinching/sharp type pain. He admits to some nausea. He did pass out after his blood work drawn which has happened before. He has a family history of cardiac disease. uncle had cardiac event at 53 and dad at 57. He has no cardiac history personally. Is not a smoker and has never smoked. Did have asthma when was younger. No recent illness. No shortness breath. No palpitations. No recent illness. Never had this before. Nothing makes it better or worse. He was given a dose of aspirin. - History of Current Complaint Chief Complaint: EDChestPainROMI Time Seen by Provider: 11/03/17 14:55 Pain Intensity: 0 - Allergy/Home Medications Allergies/Adverse Reactions: Allergies Allergy/AdvReac Type Severity Reaction Status Date / Time No Known Allergies Allergy Verified 11/03/17 11:53 PMH/Surg Hx/FS Hx/Imm Hx Endocrine/Hematology History: Denies: Hx Anticoagulant Therapy, Hx Diabetes, Hx Thyroid Disease Cardiovascular History: Denies: Hx Congestive Heart Failure, Hx Deep Vein Thrombosis, Hx Hypertension , Hx Myocardial Infarction, Hx Pacemaker/ICD Respiratory History: Reports: Hx Asthma - Childhood Denies: Hx Chronic Obstructive Pulmonary Disease (COPD), Hx Lung Cancer, Hx Pneumonia, Hx Pulmonary Embolism GI History: Denies: Hx Gall Bladder Disease, Hx Gastrointestinal Bleed, Hx Ulcer, Hx Urosepsis History: Denies: Hx Kidney Stones, Hx Renal Disease Neurological History: Denies: Hx Dementia, Hx Migraine, Hx Seizures, Hx Transient Ischemic Attacks (TIA) Psychiatric History: Denies: Hx Anxiety, Hx Depression, Hx Schizophrenia, Hx Bipolar Disorder Infectious Disease History: No Infectious Disease History: Reports: Hx Shingles Denies: Hx Clostridium Difficile, Hx Hepatitis, Hx Human Immunodeficiency Virus (HIV), Hx of Known/Suspected MRSA, Hx Tuberculosis, Hx Known/Suspected VRE , Hx Known/Suspected VRSA, History Other Infectious Disease, Traveled Outside the [place] in Last 30 Days - Family History Known Family History: Positive: Cardiac Disease, Hypertension, Diabetes, Other - NEG: GI disease - Social History Alcohol Use: Occasionally Substance Use Type: Reports: None Smoking Status (MU): Never Smoked Tobacco Have You Smoked in the Last Year: No Review of Systems Negative: Fever Positive: Chest Pain Negative: Shortness Of Breath, Cough Negative: Abdominal Pain All Other Systems Reviewed And Are Negative: Yes Physical Exam Triage Information Reviewed: Yes Vital Signs On Initial Exam: Initial Vitals Temp Pulse Resp BP Pulse Ox 99.0 F 79 18 154/86 99 11/03/17 11:51 11/03/17 11:51 11/03/17 11:51 11/03/17 11:51 11/03/17 11:51 Vital Signs Reviewed: Yes Appearance: Positive: Well-Appearing Skin: Positive: Warm, Dry Head/Face: Positive: Normal Head/Face Inspection Eyes: Positive: Normal, Conjunctiva Clear ENT: Positive: Pharynx normal Respiratory/Lung Sounds: Positive: Clear to Auscultation, Breath Sounds Present Cardiovascular: Positive: Normal, RRR Abdomen Description: Positive: Nontender, Soft Bowel Sounds: Positive: Present Musculoskeletal: Positive: Normal Neurological: Positive: Normal Psychiatric: Positive: Normal Diagnostics - Vital Signs Vital Signs Temp Pulse Resp BP Pulse Ox 11/03/17 14:52 98.0 F 61 15 120/59 100 11/03/17 14:28 99.0 F 76 18 143/79 100 11/03/17 11:51 99.0 F 79 18 154/86 99 - Laboratory Lab Results: Lab Results 11/03/17 11/03/17 11/03/17 Range/Units 12:56 12:56 12:57 WBC 8.0 (3.5-10.8) 10^3/ul RBC 5.64 H (4.00-5.40) 10^6/ul Hgb 16.5 (14.0-18.0) g/dl Hct 47 (42-52) % MCV 83 (80-94) fL MCH 29 (27-31) pg MCHC 35 (31-36) g/dl RDW 13 (10.5-15) % Plt Count 204 (150-450) 10^3/ul MPV 8.8 (7.4-10.4) um3 Neut % (Auto) 77.3 (38-83) % Lymph % (Auto) 15.4 L (25-47) % [place] % (Auto) 5.4 (0-7) % Eos % (Auto) 1.5 (0-6) % Baso % (Auto) 0.4 (0-2) % Absolute Neuts (auto) 6.2 (1.5-7.7) 10^3/ul Absolute Lymphs (auto) 1.2 (1.0-4.8) 10^3/ul Absolute Monos (auto) 0.4 (0-0.8) 10^3/ul Absolute Eos (auto) 0.1 (0-0.6) 10^3/ul Absolute Basos (auto) 0 (0-0.2) 10^3/ul Absolute Nucleated RBC 0.1 10^3/ul Nucleated RBC % 1.0 D-Dimer, Quantitative < 200 (Less Than 230) ng/mL Sodium 138 (135-145) mmol/L Potassium 4.3 (3.5-5.0) mmol/L Chloride 103 (101-111) mmol/L Carbon Dioxide 27 (22-32) mmol/L Anion Gap 8 (2-11) mmol/L BUN 12 (6-24) mg/dL Creatinine 1.05 (0.67-1.17) mg/dL Est GFR ( Amer) 104.1 (>60) Est GFR (Non-Af Amer) 86.1 (>60) BUN/Creatinine Ratio 11.4 (8-20) Glucose 101 H (70-100) mg/dL Lactic Acid (0.5-2.0) mmol/L Calcium 9.8 (8.6-10.3) mg/dL Total Bilirubin 0.70 (0.2-1.0) mg/dL AST 17 (13-39) U/L ALT 16 (7-52) U/L Alkaline Phosphatase 62 (34-104) U/L Troponin I 0.00 (<0.04) ng/mL Total Protein 7.6 (6.4-8.9) g/dL Albumin 5.0 (3.2-5.2) g/dL Globulin 2.6 (2-4) g/dL Albumin/Globulin Ratio 1.9 (1-3) 11/03/17 Range/Units 12:57 WBC (3.5-10.8) 10^3/ul RBC (4.00-5.40) 10^6/ul Hgb (14.0-18.0) g/dl Hct (42-52) % MCV (80-94) fL MCH (27-31) pg MCHC (31-36) g/dl RDW (10.5-15) % Plt Count (150-450) 10^3/ul MPV (7.4-10.4) um3 Neut % (Auto) (38-83) % Lymph % (Auto) (25-47) % [place] % (Auto) (0-7) % Eos % (Auto) (0-6) % Baso % (Auto) (0-2) % Absolute Neuts (auto) (1.5-7.7) 10^3/ul Absolute Lymphs (auto) (1.0-4.8) 10^3/ul Absolute Monos (auto) (0-0.8) 10^3/ul Absolute Eos (auto) (0-0.6) 10^3/ul Absolute Basos (auto) (0-0.2) 10^3/ul Absolute Nucleated RBC 10^3/ul Nucleated RBC % D-Dimer, Quantitative (Less Than 230) ng/mL Sodium (135-145) mmol/L Potassium (3.5-5.0) mmol/L Chloride (101-111) mmol/L Carbon Dioxide (22-32) mmol/L Anion Gap (2-11) mmol/L BUN (6-24) mg/dL Creatinine (0.67-1.17) mg/dL Est GFR ( Amer) (>60) Est GFR (Non-Af Amer) (>60) BUN/Creatinine Ratio (8-20) Glucose (70-100) mg/dL Lactic Acid 0.7 (0.5-2.0) mmol/L Calcium (8.6-10.3) mg/dL Total Bilirubin (0.2-1.0) mg/dL AST (13-39) U/L ALT (7-52) U/L Alkaline Phosphatase (34-104) U/L Troponin I (<0.04) ng/mL Total Protein (6.4-8.9) g/dL Albumin (3.2-5.2) g/dL Globulin (2-4) g/dL Albumin/Globulin Ratio (1-3) Result Diagrams: 11/03/17 12:57 11/03/17 12:56 Lab Statement: Any lab studies that have been ordered have been reviewed, and results considered in the medical decision making process. - Radiology chest Xray Interpretation: No Acute Changes Radiology Interpretation Completed By: Radiologist - EKG No standard instances Cardiac Rate: NL EKG Rhythm: Sinus Rhythm ST Segment: Normal EKG Interpretation: normal sinus rhythm EKG Comparison: No Significant Change Chest Pain Course/Dx - Course Course Of Treatment: 27-year-old male presents with chest pain for the past couple hours. He states that it started as a feeling of lightheadedness which he gets once a month. He then develops some sternal pain which he just thought his chest needed to crack so he did that put it did not help. Then he developed some pinpoint pain to an area to his left side. He states it is a pinching/sharp type pain. He admits to some nausea. He did pass out after his blood work drawn which has happened before. He has a family history of cardiac disease. uncle had cardiac event at 53 and dad at 57. He has no cardiac history personally. Is not a smoker and has never smoked. Did have asthma when was younger. No recent illness. No shortness breath. No palpitations. No recent illness. Never had this before. Nothing makes it better or worse. He was given a dose of aspirin. On exam lungs clear to auscultation. Heart regular rate and rhythm. EKG history. Chest x-ray normal. serial troponins normal. Heart score 1. D-dimer negative. Discuss results with patient. Told to follow with primary. Patient understands agrees with plan. - Chest Pain Differential Diagnosis/HQI/PQRI: Angina, Chest Wall, Pulmonary Embolism - Diagnoses Provider Diagnoses: Chest pain Discharge - Sign-Out/Discharge Documenting (check all that apply): Patient Departure - Discharge Plan Condition: Good Disposition: HOME Patient Education Materials: Noncardiac Chest Pain (ED) Referrals: Kendall Ramirez MD [Primary Care Provider] - Additional Instructions: cardiac work up today was normal Follow up with primary within 5 days Can take Tylenol or ibuprofen every 6 hours as needed for pain Return to ED if develop any new or worsening symptoms - Billing Disposition and Condition Condition: GOOD Disposition: Home
[2017-11-03 15:49] VITALS: BP 123/66
== END 2017-11-03 15:48 | disposition home or self-care (01) ==
LOC: ED 11:47
DX: R07.9 Chest pain, unspecified (principal)
CPT/HCPCS: 36415; 71045; 80053; 83605; 84484; 85025; 85379; 93005; 99282; A9270-GY